=== PATIENT | female | born 1970 | race Caucasian/White ===

== ENCOUNTER → 2016-10-25 | Outpatient (CLI) | payer OTHER ==
--- NOTE | 2016-10-25 12:38 | REP ---
Clinical: Abnormal uterine bleeding . Technique: Transabdominal pelvic ultrasound followed by transvaginal examination for better evaluation of the endometrium and adnexa with color Doppler evaluation of the ovaries. Findings: Bladder is unremarkable and measures 14.3 x 8.2 x 10.5 centimeters . Heterogeneous anteverted uterus measures 5.7 x 3.3 x 3.7 cm with insignificant 5 mm myometrial cyst and 6 mm posterior intramural fibroid. The endometrial complex measures 12.4 mm thickness. Bilateral ovaries are normal in vascularity without evidence for torsion. Right ovary measures 2.5 x 1.8 x 1.4 cm ; R I = 0.67 . Left ovary measures 3.9 x 2.7 x 3.0 cm with 2.9 x 1.9 x 2.4 cm septated cyst ; R I = 0.62 . No pelvic fluid or adnexal mass lesion . Impression: 1. heterogeneous anteverted uterus with subcentimeter posterior intramural fibroid and 5 mm simple insignificant myometrial cyst. 2. Left ovary includes 2.9 cm septated complex cyst likely physiologic which may be reevaluated in 4-6 weeks to evaluate for resolution. Signed by Mohsen Juárez MD 10/25/2016 12:30 P
== END ==
LOC: M SMT 11:19
PROVIDERS: ATTEND Obstetrics & Gynecology
DX: N93.9 Abnormal uterine and vaginal bleeding, unspecified (principal); N83.202 Unspecified ovarian cyst, left side

== ENCOUNTER → 2017-01-11 | Outpatient (REF) | payer OTHER | LOC: M LAB REF 17:24 | PROVIDERS: ATTEND Obstetrics & Gynecology | DX: N93.9 Abnormal uterine and vaginal bleeding, unspecified (principal) ==

== ENCOUNTER → 2018-04-10 | Outpatient (REF) | payer OTHER ==
[2018-04-16 14:17] LABS: HPV HYBRID CAPTURE II Negative (Negative)
== END ==
LOC: M LAB REF 19:11
DX: Z12.4 Encounter for screening for malignant neoplasm of cervix (principal); R87.610 Atypical squamous cells of undetermined significance on cytologic smear of cervix (ASC-US)
CPT/HCPCS: G0123

== ENCOUNTER → 2018-11-27 | Outpatient (CLI) | payer OTHER ==
--- NOTE | 2018-11-27 18:33 | REP ---
Maxillofacial CT study without contrast: History: Recurrent sinusitis. No comparison imaging. CT findings: There are minimal mucous retention cysts in the inferior aspect of each maxillary sinus. Otherwise, the maxillary sinuses are clear bilaterally. The patient is status post uncinectomy on the right. This is widely patent. The ostiomeatal complex on the left is widely patent. Ethmoid and sphenoid aeration is normal. There is a band of mucoid material spanning the sphenoid sinus on the left. The left frontal sinus is hypoplastic. The frontal sinuses are otherwise clear. Nasal ethmoid recesses are unremarkable. Bony nasal septum deviates slightly to the left. Nasal turbinate soft tissues are unremarkable. Impression: Status post uncinectomy on the right. Small mucous retention cyst in the floor of each maxillary sinus. Some linear mucoid material in the sphenoid sinus on the left. Otherwise negative. Electronically Signed by Rogerio Kerr MD 11/27/2018 07:27 P
== END ==
LOC: M RAD 16:15
PROVIDERS: ATTEND Otolaryngology
DX: J32.0 Chronic maxillary sinusitis (principal); J34.1 Cyst and mucocele of nose and nasal sinus

== ENCOUNTER 2019-04-10 06:36 | Day surgery (SDC) | payer OTHER ==
[~2019-04-10] VITALS: Ht 165.1 cm; Wt 60.3 kg
[~2019-04-10 06:36] MED LIST: DULO1CAP6 PO; HUMI40KI SC; LEFL1TAB4 PO; LEFL20TA10 PO; LIDOCAINE 1% MDV 20ML VIAL SQ PRN; LINZ290C PO; LISI10TA4 PO; LR 1,000 ML IV ONE; NABU-126 PO; QUET5TAB PO; VIBR100C PO; XANA0.25 PO; ZIAC10TA PO; dexameTHASONE 4 MG/ML 1ML VIAL (J1100) IV ONE
[2019-04-10] MEDS ORDERED: ROCURONIUM BROMIDE 50 MG/5 ML VIAL As Ordered ONE (07:53)
[2019-04-10] MEDS ORDERED: LIDOCAINE 2% INJ 100 MG/5 ML SDV (FOR ANES.) As Ordered ONE (07:53)
[2019-04-10] MEDS ORDERED: PROPOFOL 200 MG/20 ML VIAL As Ordered ONE (07:53)
[2019-04-10] MEDS ORDERED: dexameTHASONE 4 MG/ML 1ML VIAL (J1100) As Ordered ONE (07:53)
[2019-04-10] MEDS ORDERED: ONDANSETRON 4MG/2ML VIAL (J2405) As Ordered ONE (07:54)
[2019-04-10] MEDS ORDERED: MIDAZOLAM INJ 2 MG/2 ML VIAL (J2250) As Ordered ONE (08:36)
[2019-04-10] MEDS ORDERED: fentaNYL 250 MCG/5 ML INJECTION (J3010) As Ordered ONE (08:36)
[2019-04-10] MEDS ORDERED: LIDOCAINE W/EPINEPHRINE 1% 20ML VIAL As Ordered ONE (08:52)
[2019-04-10] MEDS ORDERED: EPINEPHrine INJ 1 MG/ML 1ML VIAL As Ordered ONE (08:52)
[2019-04-10] MEDS ORDERED: LACRILUBE (AKWA TEARS) OPHTH OINT 3.5 GM As Ordered ONE (08:54)
[2019-04-10] MEDS ORDERED: METHYLENE BLUE 0.5% (5MG/ML) 10 ML AMP (PROVAYBLUE)(Q9968 PER 1MG) As Ordered ONE (09:13)
[2019-04-10] MEDS ORDERED: EPINEPHrine 1MG/ML INJ 30ML MD-VIAL As Ordered ONE (09:13)
[2019-04-10] MEDS ORDERED: ePHEDrine SULFATE 25 MG/5 ML(5MG/ML) SYRINGE As Ordered ONE (09:20)
[2019-04-10] MEDS ORDERED: ONDANSETRON 4MG/2ML VIAL (J2405) IV PRN (11:30)
[2019-04-10] MEDS ORDERED: METOCLOPRAMIDE INJ 10MG/2ML VIAL (J2765) IV PRN (11:30)
[2019-04-10] MEDS ORDERED: LR 1,000 ML IV SCH ×2 (11:30→12:31)
[2019-04-10] MEDS ORDERED: fentaNYL 100 MCG/2 ML INJECTION (J3010) IV PRN (11:30)
[2019-04-10] MEDS: oxyCODONE 5MG TAB PO PRN ×2 (11:36→12:03)
[2019-04-10 13:10] VITALS: BP 125/76
--- NOTE | 2019-04-26 08:00 | RO ---
DATE OF PROCEDURE: 04/10/2019 PREPROCEDURE DIAGNOSIS: Left frontal sinusitis, left maxillary sinusitis, left ethmoid sinusitis. POSTPROCEDURE DIAGNOSIS: Left frontal sinusitis, left maxillary sinusitis, left ethmoid sinusitis. PROCEDURE: 1. Stereotactic surgery using the Brainlab. 2. Left frontal sinusotomy using balloon. 3. Left maxillary antrostomy using balloon. 4. Left anterior ethmoidectomy. 5. Implantation of the left Propel stent. SURGEON: Viral Botello MD RECEIVER DISPATCHER: ANESTHESIA: General. CLINICAL PREAMBLE: This 48-year-old woman presented to the office complaining of left-sided facial tenderness and pressure sensation. She has had sinus surgery done to the right side of her paranasal sinuses more than a decade ago. 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 Management options including surgery listed above have been discussed. The patient understood and consented to the procedure. DESCRIPTION OF PROCEDURE: The patient was identified in preoperative holding and had the left naris marked. She was brought to the operating room in stable condition. In supine position on the operating table, the patient received general anesthesia followed by orotracheal intubation without incident. The patient was prepped and draped in the usual fashion for the procedure. The eyes were protected using the lubricant and the Tegaderm. The headband for the Brainlab system was attached to the forehead. Good surface matching was obtained between the Brainlab system and the facial surface anatomy. Both sides of the nasal cavity were then packed using pledgets of 1:1000 epinephrine. The pledgets was removed. The nasal cavity was then inspected using 0-degree nasal endoscope. The anterior surface of the left middle nasal turbinate was infiltrated with 1:100,000 epinephrine. The left uncinate process was then similarly identified and infiltrated with 1% lidocaine with 1:100,000 epinephrine. Using the balloon system from the [employer], the left frontal recess was successfully probed and identified. The illuminated guidewire was successfully introduced into the left frontal sinus cavity. The balloon was advanced into the left frontal recess and then inflated to 12 atmospheric pressure for 5 seconds. The left frontal was then irrigated. At this time, the left maxillary antrum was then identified and with the illuminated guidewire, successfully introduced into the left maxillary sinus. The balloon was then inflated to 12 atmospheric pressure again for 5 seconds. At this time, the left ethmoidalis bulla was identified and successfully resected. The anterior ethmoid air cells was then taken out as well. No additional disease was noted in the posterior ethmoid air cell system. At this time, hemostasis achieved using cottonoid pledgets soaked in 1:1000 epinephrine. The Propel stent was placed into the left osteomeatal complex area to ensure medialization of the left middle nasal turbinate. At the end of the procedure, sponge and instrument counts were correct. No complications were encountered. Estimated blood loss was less than 50 mL. General anesthesia was reversed, and the patient was extubated and brought to the recovery room in stable condition. In the recovery area, the patient exhibited full and symmetrical extraocular motion with no evidence of periorbital ecchymosis.
== END 2019-04-10 13:15 | disposition home or self-care (01) ==
LOC: M SDC 06:36
PROVIDERS: ATTEND Otolaryngology
DX: J32.0 Chronic maxillary sinusitis (principal); J32.1 Chronic frontal sinusitis; J32.2 Chronic ethmoidal sinusitis; J31.0 Chronic rhinitis; I10 Essential (primary) hypertension; F41.9 Anxiety disorder, unspecified; F32.9 Major depressive disorder, single episode, unspecified; K58.8 Other irritable bowel syndrome; R12 Heartburn; M06.9 Rheumatoid arthritis, unspecified; Z88.1 Allergy status to other antibiotic agents; Z88.2 Allergy status to sulfonamides; Z88.8 Allergy status to other drugs, medicaments and biological substances; Z79.899 Other long term (current) drug therapy
CPT/HCPCS: 31254; 31267; 81025; 88305; C2625; J1100; J2250; J2405; J3010; Q9968

== ENCOUNTER → 2019-10-08 | Outpatient (REF) | payer OTHER ==
[~2019-10-08] MED LIST changes: -LIDOCAINE 1% MDV 20ML VIAL SQ PRN; -LR 1,000 ML IV ONE; -dexameTHASONE 4 MG/ML 1ML VIAL (J1100) IV ONE
== END ==
LOC: M SFHCWAGY 17:41
PROVIDERS: ATTEND Obstetrics & Gynecology
DX: Z12.4 Encounter for screening for malignant neoplasm of cervix (principal); Z01.419 Encounter for gynecological examination (general) (routine) without abnormal findings

== ENCOUNTER 2019-12-08 21:40 | Inpatient (IN) | payer OTHER ==
[~2019-12-08 21:40] MED LIST changes: -NABU-126 PO; +NABU-51 PO
[2019-12-08] MEDS ORDERED: PANTOPRAZOLE 40MG VIAL (C9113 PER 1) As Ordered ONE (23:03)
[2019-12-08] MEDS ORDERED: PANTOPRAZOLE 40MG VIAL (C9113 PER 1) ONE (23:03)
[2019-12-08] MEDS ORDERED: GI COCKTAIL 50ML BTL(HYOSCYAMINE/MAALOX/LIDOCAINE VISCOUS)(1:3:1) ONE (23:03)
[2019-12-08] MEDS ORDERED: GI COCKTAIL 50ML BTL(HYOSCYAMINE/MAALOX/LIDOCAINE VISCOUS)(1:3:1) As Ordered ONE (23:03)
[2019-12-08] MEDS ORDERED: ISOVUE-370 76% 100ML VIAL As Ordered ONE (23:21)
[2019-12-09] MEDS ORDERED: ONDANSETRON 4 MG ORAL DISINTEGRATING TAB ONE (04:23)
[2019-12-09] MEDS ORDERED: ONDANSETRON 4 MG ORAL DISINTEGRATING TAB As Ordered ONE (04:23)
[2019-12-09] MEDS ORDERED: metroNIDAZOLE/NACL 500MG(5MG/ML) 100ML BAG (S0030) ONE ×3 (05:20→22:48)
[2019-12-09] MEDS ORDERED: metroNIDAZOLE/NACL 500MG(5MG/ML) 100ML BAG (S0030) As Ordered ONE ×3 (05:20→22:48)
[2019-12-09] MEDS ORDERED: FAMOTIDINE 20 MG TAB ONE (17:42)
[2019-12-09] MEDS ORDERED: ALPRAZolam 0.25 MG TAB ONE (17:42)
[2019-12-09] MEDS ORDERED: lisinopriL 10 MG TAB ONE (17:42)
[2019-12-09] MEDS ORDERED: bisoproloL fumarate 10 MG TAB As Ordered ONE (17:42)
[2019-12-09] MEDS ORDERED: bisoproloL fumarate 10 MG TAB ONE (17:42)
[2019-12-09] MEDS ORDERED: lisinopriL 10 MG TAB As Ordered ONE (17:42)
[2019-12-09] MEDS ORDERED: ALPRAZolam 0.25 MG TAB As Ordered ONE (17:42)
[2019-12-09] MEDS ORDERED: FAMOTIDINE 20 MG TAB As Ordered ONE (17:43)
[2019-12-09] MEDS ORDERED: ENOXAPARIN 40MG/0.4ML SYRINGE (J1650 PER 10MG) As Ordered ONE (20:31)
[2019-12-09] MEDS ORDERED: PANTOPRAZOLE 40MG TAB (PROTONIX) ONE (20:31)
[2019-12-09] MEDS ORDERED: DULoxetine 30 MG CAP (CYMBALTA) ONE (20:31)
[2019-12-09] MEDS ORDERED: ENOXAPARIN 40MG/0.4ML SYRINGE (J1650 PER 10MG) ONE (20:31)
[2019-12-09] MEDS ORDERED: QUEtiapine FUMARATE 50 MG TAB ONE (20:31)
[2019-12-09] MEDS ORDERED: DULoxetine 30 MG CAP (CYMBALTA) As Ordered ONE (20:31)
[2019-12-09] MEDS ORDERED: PANTOPRAZOLE 40MG TAB (PROTONIX) As Ordered ONE (20:31)
[2019-12-09] MEDS ORDERED: QUEtiapine FUMARATE 50 MG TAB As Ordered ONE (20:31)
[2019-12-09] MEDS ORDERED: traMADol 50 MG TAB As Ordered ONE (20:46)
[2019-12-09] MEDS ORDERED: traMADol 50 MG TAB ONE (20:46)
[2019-12-10] MEDS ORDERED: metroNIDAZOLE/NACL 500MG(5MG/ML) 100ML BAG (S0030) As Ordered ONE (05:35)
[2019-12-10] MEDS ORDERED: metroNIDAZOLE/NACL 500MG(5MG/ML) 100ML BAG (S0030) ONE (05:35)
[2019-12-10] MEDS ORDERED: PANTOPRAZOLE 40MG TAB (PROTONIX) As Ordered ONE (08:58)
[2019-12-10] MEDS ORDERED: lisinopriL 10 MG TAB As Ordered ONE (08:58)
[2019-12-10] MEDS ORDERED: FAMOTIDINE 20 MG TAB As Ordered ONE (08:59)
[2019-12-10] MEDS ORDERED: bisoproloL fumarate 10 MG TAB As Ordered ONE (08:59)
[2019-12-10] MEDS ORDERED: lisinopriL 10 MG TAB ONE (20:58)
[2019-12-10] MEDS ORDERED: PANTOPRAZOLE 40MG TAB (PROTONIX) ONE (20:58)
[2019-12-10] MEDS ORDERED: bisoproloL fumarate 10 MG TAB ONE (20:58)
[2019-12-10] MEDS ORDERED: FAMOTIDINE 20 MG TAB ONE (20:58)
--- NOTE | 2020-01-13 11:04 | ECGEPIP ---
[facility] - ED Test Date: 2019-12-08 Pat Name: LAY COELLO Department: Room: [place] [address] Gender: Female Histopathology Technician: KATHLEEN : 1970 Requested By: EMERGENCY ROOM Order Number: [id number] Reading MD: Jose A Leigh Measurements Intervals [place] Rate: 66 P: 43 AK: 166 QRS: 56 QRSD: 95 T: 58 QT: 395 QTc: 414 Interpretive Statements NORMAL SINUS RHYTHM SEE SCANNED DOWNTIME REPORT
[2020-01-23 22:12] LABS: BASO % 0.4 % (0.0-1.0); EOS # 0.5 10^3/uL (0.0-0.5); EOS % 6.8 % (0.0-3.0); HEMATOCRIT 37.4 % (36.0-47.0); LYMPH # 2.1 10^3/uL (1.5-5.0); LYMPH % 26.5 % (24.0-44.0); MEAN CORPUSCULAR HEMOGLOBIN 30.2 pg (27.0-33.0); MEAN CORPUSCULAR HGB CONC 34.8 g/dl (32.0-36.5); MONO # 0.4 10^3/uL (0.0-0.8); MONO % 4.8 % (0.0-5.0); NEUTROPHILS # 4.9 10^3/uL (1.5-8.5); PLATELET COUNT, AUTOMATED 237 10^3/uL (150-450)
[2020-01-24 07:49] LABS: BASO # 0.1 10^3/uL (0.0-0.2); BASO % 0.7 % (0.0-1.0); EOS # 0.6 10^3/uL (0.0-0.5); EOS % 8.2 % (0.0-3.0); HEMATOCRIT 33.4 % (36.0-47.0); HEMOGLOBIN 11.7 g/dl (12.0-15.5); LYMPH # 2.1 10^3/uL (1.5-5.0); LYMPH % 28.4 % (24.0-44.0); MEAN CORPUSCULAR HEMOGLOBIN 30.5 pg (27.0-33.0); MEAN CORPUSCULAR VOLUME 87.2 fl (80.0-96.0); MONO # 0.5 10^3/uL (0.0-0.8); MONO % 7.2 % (0.0-5.0); NEUTROPHILS % 55.2 % (36.0-66.0); PLATELET COUNT, AUTOMATED 229 10^3/uL (150-450); RED BLOOD COUNT 3.83 10^6/uL (4.00-5.40); WHITE BLOOD COUNT 7.2 10^3/uL (4.0-10.0)
[2020-01-24 07:54] LABS: INR 1.03; PROTHROMBIN TIME 13.7 SECONDS (12.5-14.3)
[2020-02-01 01:01] LABS: HEMATOCRIT 32.1 % (36.0-47.0); HEMOGLOBIN 10.9 g/dl (12.0-15.5); MEAN CORPUSCULAR HEMOGLOBIN 30.8 pg (27.0-33.0); MEAN CORPUSCULAR VOLUME 90.7 fl (80.0-96.0); PLATELET COUNT, AUTOMATED 206 10^3/uL (150-450); RED BLOOD COUNT 3.54 10^6/uL (4.00-5.40); WHITE BLOOD COUNT 5.7 10^3/uL (4.0-10.0)
[2020-02-21 22:28] LABS: ALBUMIN 3.7 GM/DL (3.2-5.2); ALT/SGPT 86 U/L (12-78); BILIRUBIN,TOTAL 0.9 MG/DL (0.2-1.0); BLOOD UREA NITROGEN 27 MG/DL (7-18); CALCIUM LEVEL 8.7 MG/DL (8.5-10.1); CARBON DIOXIDE LEVEL 26 MEQ/L (21-32); CHLORIDE LEVEL 101 MEQ/L (98-107); CK-MB VALUE MASS 3.7 NG/ML (<3.6); CPK CREATINE PHOSPHOKINASE 132 U/L (26-192); CREATININE FOR GFR 1.17 MG/DL (0.55-1.30); GLOMERULAR FILTRATION RATE 52.1 (>51); GLUCOSE, FASTING 127 MG/DL (70-100); LIPASE 4907 U/L (73-393); POTASSIUM SERUM 3.3 MEQ/L (3.5-5.1); SODIUM LEVEL 136 MEQ/L (136-145); TOTAL PROTEIN 6.7 GM/DL (6.4-8.2); TROPONIN I < 0.02 NG/ML (< 0.10)
[2020-03-02 03:33] LABS: ALBUMIN 3.1 GM/DL (3.2-5.2); ALT/SGPT 74 U/L (12-78); BILIRUBIN,TOTAL 0.5 MG/DL (0.2-1.0); BLOOD UREA NITROGEN 19 MG/DL (7-18); CALCIUM LEVEL 7.9 MG/DL (8.5-10.1); CARBON DIOXIDE LEVEL 30 MEQ/L (21-32); CHLORIDE LEVEL 105 MEQ/L (98-107); CHOLESTEROL LEVEL 145 MG/DL (<200); CHOLESTEROL RISK RATIO 2.543 (<5); CREATININE FOR GFR 0.92 MG/DL (0.55-1.30); GLOMERULAR FILTRATION RATE > 60.0 (>51); GLUCOSE, FASTING 96 MG/DL (70-100); HDL CHOLESTEROL 57 MG/DL (>40); HEMOGLOBIN A1c 5.6 %; HEPATITIS A ANTIBODY IGM NEGATIVE (NEGATIVE); HEPATITIS B CORE ANTIBODY IGM NEGATIVE (NEGATIVE); HEPATITIS B SURFACE ANTIGEN NEGATIVE (NEGATIVE); HEPATITIS C VIRUS ABY INDEX 0.2 INDEX (<0.8); LDL CHOLESTEROL 81 MG/DL (<100); MAGNESIUM LEVEL 2.1 MG/DL (1.8-2.4); NON-HDL-C 88 MG/DL; PHOSPHORUS LEVEL 2.7 MG/DL (2.5-4.9); POTASSIUM SERUM 3.7 MEQ/L (3.5-5.1); SODIUM LEVEL 139 MEQ/L (136-145); TOTAL PROTEIN 6.1 GM/DL (6.4-8.2); TRIGLYCERIDES LEVEL 35 MG/DL (<150)
[2020-03-02 03:33] LABS: ALBUMIN 3.1 GM/DL (3.2-5.2); ALT/SGPT 73 U/L (12-78); BILIRUBIN,TOTAL 0.6 MG/DL (0.2-1.0); BLOOD UREA NITROGEN 18 MG/DL (7-18); CARBON DIOXIDE LEVEL 29 MEQ/L (21-32); CHLORIDE LEVEL 105 MEQ/L (98-107); CHOLESTEROL LEVEL 151 MG/DL (<200); CHOLESTEROL RISK RATIO 2.559 (<5); CREATININE FOR GFR 0.92 MG/DL (0.55-1.30); GLOMERULAR FILTRATION RATE > 60.0 (>51); GLUCOSE, FASTING 94 MG/DL (70-100); HDL CHOLESTEROL 59 MG/DL (>40); HEPATITIS A ANTIBODY IGM NEGATIVE (NEGATIVE); HEPATITIS B CORE ANTIBODY IGM NEGATIVE (NEGATIVE); HEPATITIS B SURFACE ANTIGEN NEGATIVE (NEGATIVE); HEPATITIS C VIRUS ABY INDEX 0.2 INDEX (<0.8); LDL CHOLESTEROL 85 MG/DL (<100); NON-HDL-C 92 MG/DL; POTASSIUM SERUM 3.8 MEQ/L (3.5-5.1); SODIUM LEVEL 141 MEQ/L (136-145); TOTAL PROTEIN 5.8 GM/DL (6.4-8.2); TRIGLYCERIDES LEVEL 34 MG/DL (<150)
[2020-03-03 15:47] LABS: ALBUMIN 2.7 GM/DL (3.2-5.2); ALT/SGPT 47 U/L (12-78); BILIRUBIN,TOTAL 0.4 MG/DL (0.2-1.0); BLOOD UREA NITROGEN 9 MG/DL (7-18); CALCIUM LEVEL 7.8 MG/DL (8.5-10.1); CARBON DIOXIDE LEVEL 29 MEQ/L (21-32); CHLORIDE LEVEL 112 MEQ/L (98-107); GLOMERULAR FILTRATION RATE > 60.0 (>51); GLUCOSE, FASTING 100 MG/DL (70-100); SODIUM LEVEL 144 MEQ/L (136-145); TOTAL PROTEIN 5.2 GM/DL (6.4-8.2)
== END 2019-12-10 09:38 | disposition home or self-care (01) | DRG 440 ==
LOC: M ED 21:40 → M MS5PR 12-09 04:20
PROVIDERS: ADMIT Internal Medicine; ATTEND Internal Medicine
DX: K85.90 Acute pancreatitis without necrosis or infection, unspecified (principal); K86.1 Other chronic pancreatitis; K52.9 Noninfective gastroenteritis and colitis, unspecified; I10 Essential (primary) hypertension; M06.9 Rheumatoid arthritis, unspecified; K21.9 Gastro-esophageal reflux disease without esophagitis; F41.9 Anxiety disorder, unspecified; Z79.899 Other long term (current) drug therapy

== ENCOUNTER → 2020-03-17 | Outpatient (CLI) | payer OTHER ==
[~2020-03-17] MED LIST changes: +CETI10CH PO; +CETI10TA4 PO; +ESOM40CA35 PO; +GASTROGRAFIN SOLUTION 30ML (Q9963) As Ordered ONE; +METO1TAB87 PO; +MULTCAP PO; +NABU-53 PO; +PREM0.3T2 PO; +VITMTA PO
--- NOTE | 2020-03-18 05:19 | REP ---
INDICATION: HISTORY OF PANCREATITIS, RECENT EPISODE, ABD PAIN/TENDERNESS COMPARISON: None TECHNIQUE: Axial noncontrast images of the abdomen with coronal and sagittal reformations. This CT examination was performed using the following dose reduction techniques: Automated exposure control, adjustment of mA and/or kv according to the patient's size, and use of iterative reconstruction technique. FINDINGS: Lung bases demonstrate 3 mm noncalcified nodule in the periphery of the deep left sulcus (image 25) along with minimal bibasilar scarring. Visualized portions of the heart and pericardium are normal. Liver, spleen, pancreas, bilateral adrenal glands and kidneys are normal for noncontrast evaluation. No CT evidence for acute pancreatitis. Prior cholecystectomy noted. No ascites. Visualized portions of the enteric system are unremarkable including normal terminal ileum, cecum and appendix in the right lower quadrant. No obvious adenopathy. No free air. Musculoskeletal structures are intact and without acute osseous abnormality. IMPRESSION: 1. 3 mm noncalcified nodule in the deep left sulcus. Low risk patients require no significant follow-up while high risk patients warrant 1 year follow-up evaluation. 2. Otherwise normal noncontrast CT of the abdomen. No evidence for acute pancreatitis. No ascites. No adenopathy. <Electronically signed by Mohsen Juárez > 03/18/20 [id number]
== END ==
LOC: M RAD 15:43
PROVIDERS: ATTEND Physician Assistant
DX: R10.817 Generalized abdominal tenderness (principal); K85.91 Acute pancreatitis with uninfected necrosis, unspecified
CPT/HCPCS: 74150; Q9963

== ENCOUNTER 2020-03-18 14:08 | Observation (INO) | payer OTHER ==
[~2020-03-18] VITALS: Ht 165.1 cm; Wt 70.2 kg
[~2020-03-18 14:08] MED LIST changes: -CETI10CH PO; -CETI10TA4 PO; -ESOM40CA35 PO; -GASTROGRAFIN SOLUTION 30ML (Q9963) As Ordered ONE; -METO1TAB87 PO; -MULTCAP PO; -NABU-53 PO; -PREM0.3T2 PO; -VITMTA PO
[2020-03-18] MEDS ORDERED: MULTCAP PO (14:27)
[2020-03-18] MEDS ORDERED: ESOM40CA35 PO (14:27)
[2020-03-18] MEDS ORDERED: PREM0.3T2 PO (14:27)
[2020-03-18] MEDS ORDERED: CETI10CH PO (14:27)
--- NOTE | 2020-03-18 14:33 | ECGEPIP ---
[facility] - ED Test Date: 2020-03-18 Pat Name: LAY COELLO Department: Room: - Gender: Female Cardroom Manager: CECILE : 1970 Requested By: SUSAN Long Order Number: [id number] Reading MD: Kkii Tapia Measurements Intervals [place] Rate: 70 P: 50 AZ: 156 QRS: 49 QRSD: 90 T: 62 QT: 395 QTc: 429 Interpretive Statements SINUS RHYTHM SIMILAR 12/08/19 Electronically Signed on 03-18-2020 14:33:37 EST by Kiki Tapia
[2020-03-18] MEDS ORDERED: METOCLOPRAMIDE INJ 10MG/2ML VIAL (J2765 PER 1) IV ONE (15:00)
[2020-03-18 15:06] LABS: BASO # 0.1 10^3/uL (0.0-0.2); BASO % 0.9 % (0.0-1.0); EOS # 0.6 10^3/uL (0.0-0.5); EOS % 8.4 % (0.0-3.0); HEMATOCRIT 36.4 % (36.0-47.0); HEMOGLOBIN 12.1 g/dl (12.0-15.5); LYMPH # 2.1 10^3/uL (1.5-5.0); LYMPH % 30.8 % (24.0-44.0); MEAN CORPUSCULAR HEMOGLOBIN 29.9 pg (27.0-33.0); MEAN CORPUSCULAR HGB CONC 33.2 g/dl (32.0-36.5); MEAN CORPUSCULAR VOLUME 89.9 fl (80.0-96.0); MONO # 0.6 10^3/uL (0.0-0.8); MONO % 9.3 % (0.0-5.0); NEUTROPHILS # 3.4 10^3/uL (1.5-8.5); NEUTROPHILS % 50.2 % (36.0-66.0); PLATELET COUNT, AUTOMATED 276 10^3/uL (150-450); RED BLOOD COUNT 4.05 10^6/uL (4.00-5.40); WHITE BLOOD COUNT 6.7 10^3/uL (4.0-10.0)
[2020-03-18 15:17] LABS: ALBUMIN 3.7 GM/DL (3.2-5.2); ALT/SGPT 54 U/L (12-78); BILIRUBIN,DIRECT 0.2 MG/DL (0.0-0.2); BILIRUBIN,TOTAL 0.5 MG/DL (0.2-1.0); LIPASE 4314 U/L (73-393); TOTAL PROTEIN 6.7 GM/DL (6.4-8.2)
[2020-03-18 15:38] LABS: BLOOD UREA NITROGEN 15 MG/DL (7-18); CARBON DIOXIDE LEVEL 25 MEQ/L (21-32); CHLORIDE LEVEL 102 MEQ/L (98-107); CREATININE FOR GFR 0.97 MG/DL (0.55-1.30); GLOMERULAR FILTRATION RATE > 60.0 (>51); GLUCOSE, FASTING 136 MG/DL (70-100); POTASSIUM SERUM 3.9 MEQ/L (3.5-5.1); SODIUM LEVEL 135 MEQ/L (136-145)
[2020-03-18] MEDS ORDERED: CETI10TA4 PO (16:00)
[2020-03-18] MEDS ORDERED: NABU-53 PO (16:00)
[2020-03-18] MEDS ORDERED: VITMTA PO (16:00)
--- NOTE | 2020-03-18 16:43 | HPEPDOC ---
[facility] Medical History & Physical Date of Admission Mar 18, 2020 Date of Service: Mar 18, 2020 Attending Physician: Koki Larios MD History and Physical CHIEF COMPLAINT: Abdominal pain HISTORY OF PRESENT ILLNESS: Patient is a 49-year-old female with past medical history of recurrent pancreatitis, insomnia, anxiety who presents to [facility] emergency room after having sudden midepigastric, back pain. The patient states she has been having frequent attacks of abdominal pain in the same area over the past 2 months. She was hospitalized 12/08-04/18 for pancreatitis, initial diagnosis. Since her hospitalization she has been following outpatient with her primary care provider and has a referral in for pancreatitc specialist in [place]. 03/07/20 the patient experienced 10/10 pain in her epigastric area with radiation through to the back. Her primary care provider did labs including lipase which were normal at the time. On 03/17/[address] she had an outpatient [address] of the abdomen and pelvis done which did not show any signs of acute pancreatitis. Today she experienced similar pain to her November hospitalization: 10/10 pain, sharp, constant for 3035 minutes. It resolved after arrival to the emergency room. In the emergency room her blood pressure was 190 systolic, later improved to 140 systolic. WBC was within normal limits. Lipase was elevated at 4314, previous admission was 4907. The patient admits to her pain becoming more frequent. She had associated nausea with the pain along with shortness of breath. She denies chest pain fevers or chills, diet changes. She admits to eating solid with salad dressing and 3 bites of mac & cheese with pulled pork prior to her pain occurring today. She states that her pain is not always associated with eating but today it was. The patient was admitted under observation status for recurrent pancreatitis. REVIEW OF SYSTEMS: CONSTITUTIONAL: Denies lack of energy, unexplained weight gain or weight loss, loss of appetite, fever, night sweats EYES: Denies eye drainage, eye pain, visual changes, dry/irritated eye EARS, NOSE, MOUTH, THROAT: Denies difficulty hearing, ringing in ears, mouth sores, loose teeth, sore throat, facial numbness or pain NECK: Denies swollen glands CARDIOVASCULAR: Denies irregular heartbeat, racing heart, chest pains, swelling of feet or legs, pain in legs with walking RESPIRATORY: Denies shortness of breath, night sweats, wheezing, sputum production, oxygen at home, coughing up blood, cough lasting > 1 month GASTROINTESTINAL: Denies constipation, bloody stool, diarrhea, heartburn, vomiting GENITOURINARY: Denies painful urination, bloody urine, frequent urination, urgency, leaking urine, impotence MUSCULOSKELETAL: Denies joint pain, muscle pain, leg swelling INTEGUMENTARY: Denies rash, itching, new skin lesion, change in existing skin lesion, hair loss or increase, breast changes. NEUROLOGICAL: Denies headaches, dizziness, difficulty walking, numbness or tingling PSYCHIATRIC: Denies recurrent bad thoughts, mood swings, hallucinations PAST MEDICAL HISTORY: 1. Recurrent pancreatitis 2. anxiety 3. Insomnia PAST SURGICAL HISTORY: 1. Sinus surgery 2. cholecystectomy FAMILY HISTORY: Father: HTN, DM type II. alive Mother: HTN. Alive SOCIAL HISTORY: Denies smoking history. Admits to social alcohol use, not heavy drinking. Last drink was this past 03/13/20, several glasses of wine. Denies drug use, lives with locally. Employed. Full Code. ALLERGIES: Please see below. HOME MEDICATIONS: Please see below. PHYSICAL EXAMINATION: VS: Please see below CONSTITUTIONAL: No acute distress, resting comfortably, AAO x 3 EYES: PERRLA, EOM intact HENT, MOUTH: Normocephalic, atraumatic, moist mucous membranes, NECK: SUPPLE, no JVD, no lymphadenopathy, no carotid bruit CV: Regular rate and rhythm, S1S2 normal, no murmurs/rubs/gallops RESPIRATORY: Clear to auscultation bilaterally, no rales/rhonchi/wheezes GI: BS positive in 4 quadrants, soft, mild mid abdominal discomfort on exam, nondistended, no rebound or guarding, no organomegaly : Deferred MUSCULOSKELETAL: Normal ROM. No cyanosis, clubbing, swelling, joint deformity, extremity edema INTEGUMENTARY: Intact, no rashes, no lesions, no erythema NEUROLOGIC: Cranial Nerves II-XII are intact, no focal deficits PSYCHIATRIC: Mood and affect are normal LABORATORY DATA: Please see below IMAGING: CT abd/pelvis 03/17/20 (done outpatient ordered by PCP): 1. 3 mm noncalcified nodule in the deep left sulcus. Low risk patients require no significant follow-up while high risk patients warrant 1 year follow-up evalu ation. 2. Otherwise normal noncontrast CT of the abdomen. No evidence for acute pancreatitis. No ascites. No adenopathy. ASSESSMENT: 49-year-old female with past medical history of recurrent pancr eatitis, insomnia, anxiety admitted under observation status for recurrent pancreatitis. PLAN: #Recurrent pancreatitis possibly medication induced? -WBC wnl, Neg CT above, Lipase 4314 -Denies alcohol excessively -She is on several medications that can cause pancreatitis: Prempro (estrogen/progesterone supplement), quetiapine, duloxetine, lisinopril, esomeprazole, HCTZ -Will make NPO tonight except sips of water with BP meds, advance to CLD in the AM if tolerates -Pain control with toradol PRN, can add morphine if returns severe -Currently being referred to pancreatic specialist by PCP #Uncontrolled HTN likely 2/2 to abd pain -BP improved from 190 mmHg systolic, currently 140 mmHg systolic -Will start on bisoprolol and can add CCB if needed -Keep off lisinopril, HCTZ -Monitor closely #Insomnia -Holding quetiapine #Anxiety/depression -Holding quetiapine, duloxetine #GI px -PPI #DVT px -Enoxaparin DISPOSITION: Admitted under observation status. I do not anticipate this patient requiring more than a 48-72 hr stay. Plan is home at discharge. Vital Signs Vital Signs Date Time Temp Pulse Resp B/P (MAP) Pulse Ox O2 Delivery O2 Flow Rate FiO2 03/18/20 14:52 03/18/20 14:08 98.6 94 18 99 Room Air Laboratory Data Labs 24H Laboratory Tests 2 03/18/20 14:30: Immature Granulocyte % (Auto) 0.4, Neutrophils (%) (Auto) 50.2, Lymphocytes (%) (Auto) 30.8, Monocytes (%) (Auto) 9.3H, Eosinophils (%) (Auto) 8.4H, Basophils (%) (Auto) 0.9, Neutrophils # (Auto) 3.4, Lymphocytes # (Auto) 2.1, Monocytes # (Auto) 0.6, Eosinophils # (Auto) 0.6H, Basophils # (Auto) 0.1, Nucleated Red Blood Cells % (auto) 0.0, Anion Gap 8, Glomerular Filtration Rate > 60.0, Calci um Level 9.0, Total Bilirubin 0.5, Direct Bilirubin 0.2, Aspartate Amino Transf (AST/SGOT) 68H, Alanine Aminotransferase (ALT/SGPT) 54, Alkaline Phosphatase 85, Total Protein 6.7, Albumin 3.7, Albumin/Globulin Ratio 1.2, Lipase 4314H 03/18/20 15:21: POC Glucose (Misc Panel) 109H, POC Sodium (Misc Panel) 136, POC Potassium (Misc Panel) 3.7, POC Chloride (Misc Panel) 98, POC Total CO2 (Misc Panel) 26.0, POC Blood Urea Nitrogen (Misc Panel 15, POC Ionized Calcium (Misc Panel) 4.8, POC Creatinine (Misc Panel) 0.9, POC Hematocrit (Misc Panel) 35.0L 03/18/20 15:58: CBC/BMP Laboratory Tests 03/18/20 14:30 Home Medications Scheduled Bisoprolol/Hydrochlorothiazide (Ziac 10-6.25 mg Tablet) 1 Each Tablet, 1 TAB PO DAILY Cetirizine HCl (Cetirizine HCl) 10 Mg Tablet, 10 MG PO QHS Duloxetine Hcl (Duloxetine HCl) 60 Mg Capsule.dr, 60 MG PO QHS Esomeprazole Magnesium (Esomeprazole Magnesium Dr) 40 Mg Capsule.dr, 40 MG PO QHS Estrogen,Con/M-Progest Acet (Prempro 0.3 mg-1.5 mg Tablet) 1 Each Tablet, 1 TAB PO QHS Linaclotide (Linzess) 290 Mcg Capsule, 290 MCG PO DAILY Lisinopril (Lisinopril) 10 Mg Tablet, 10 MG PO DAILY Multivitamins (Thera M Plus Tablet) 1 Each Tablet, 1 TAB PO DAILY Quetiapine Fumarate (Quetiapine Fumarate) 50 Mg Tablet, 50 MG PO QHS Scheduled PRN Nabumetone (Nabumetone) 750 Mg Tablet, 750 MG PO DAILY PRN for KNEE PAIN Allergies Coded Allergies: Sulfa (Sulfonamide Antibiotics) (Verified Allergy, Severe, ANAPHYLAXIS, 03/18/20) Cephalosporins (Verified Allergy, Intermediate, HIVES/RASH, 03/18/20) A-FIB/CHADSVASC A-FIB History Current/History of A-Fib/PAF?: No Current PO Anticoag Therapy: No Age/Risk Factor Scoring CHADSVASC: CHADSVASC Response (Comments) Value Age Risk Factor Age < 65 years old 0 Gender Risk Factor Female 1 Hx of CHF No 0 Hx of HTN Yes 1 Hx of Stroke/TIA/or VTE No 0 Hx of Diabetes No 0 Hx of Vascular Disease No 0 Total 2 Treatment Treatment ordered: Other Other anticoagulant ordered: Koki Travis MD Mar 18, 2020 16:43
[2020-03-18] MEDS: NS 1,000 ML IV SCH (16:45)
[2020-03-18 17:44] VITALS: BP 149/74
[2020-03-18] MEDS: KETOROLAC 30 MG/ML 1ML VIAL IV SCH (19:42)
[2020-03-18 20:00] VITALS: BP 144/78
[2020-03-19] MEDS: NS 1,000 ML IV SCH ×2 (00:38→08:15)
[2020-03-19] MEDS: KETOROLAC 30 MG/ML 1ML VIAL IV SCH ×2 (02:49→10:00)
[2020-03-19 06:45] VITALS: BP 124/68
[2020-03-19 07:01] LABS: HEMATOCRIT 36.4 % (36.0-47.0); HEMOGLOBIN 12.1 g/dl (12.0-15.5); MEAN CORPUSCULAR HEMOGLOBIN 30.6 pg (27.0-33.0); MEAN CORPUSCULAR HGB CONC 33.2 g/dl (32.0-36.5); MEAN CORPUSCULAR VOLUME 92.2 fl (80.0-96.0); PLATELET COUNT, AUTOMATED 224 10^3/uL (150-450); RED BLOOD COUNT 3.95 10^6/uL (4.00-5.40); WHITE BLOOD COUNT 5.4 10^3/uL (4.0-10.0)
[2020-03-19 07:25] LABS: ALBUMIN 2.8 GM/DL (3.2-5.2); ALT/SGPT 42 U/L (12-78); BILIRUBIN,TOTAL 0.4 MG/DL (0.2-1.0); BLOOD UREA NITROGEN 13 MG/DL (7-18); CALCIUM LEVEL 7.5 MG/DL (8.5-10.1); CARBON DIOXIDE LEVEL 25 MEQ/L (21-32); CHLORIDE LEVEL 110 MEQ/L (98-107); GLOMERULAR FILTRATION RATE > 60.0 (>51); GLUCOSE, FASTING 88 MG/DL (70-100); LIPASE 257 U/L (73-393); POTASSIUM SERUM 3.8 MEQ/L (3.5-5.1); SODIUM LEVEL 140 MEQ/L (136-145); TOTAL PROTEIN 5.7 GM/DL (6.4-8.2)
[2020-03-19] MEDS ORDERED: METO1TAB87 PO (07:48)
[2020-03-19] MEDS ORDERED: ENOXAPARIN 40MG/0.4ML SYRINGE (J1650 PER 10MG) SC SCH (09:00)
[2020-03-19] MEDS ORDERED: METOPROLOL TART 12.5 MG PER 1/2 TAB PO SCH (09:00)
[2020-03-19] MEDS ORDERED: bisoproloL fumarate 10 MG TAB PO SCH (09:00)
[2020-03-19 11:19] VITALS: BP 124/68
--- NOTE | 2020-03-19 15:57 | DS.PDOC ---
Discharge Summary General Date of Admission Mar 18, 2020 at 14:09 Date of Discharge 03/19/20 Attending Physician: Koki Larios MD Discharge Summary HISTORY OF PRESENT ILLNESS: Patient is a 49-year-old female with past medical history of recurrent pancreatitis, insomnia, anxiety who presents to [facility] emergency room after having sudden midepigastric, back pain. The patient states she has been having frequent attacks of abdominal pain in the same area over the past 2 months. She was hospitalized 12/08-04/18 for pancreatitis, initial diagnosis. Since her hospitalization she has been following outpatient with her primary care provider and has a referral in for pancreatitc specialist in [place]. 03/07/20 the patient experienced 10/10 pain in her epigastric area with radiation through to the back. Her primary care provider did labs including lipase which were normal at the time. On 03/17/[address] she had an outpatient [address] of the abdomen and pelvis done which did not show any signs of acute pancreatitis. Today she experienced similar pain to her November hospitalization: 10/10 pain, sharp, constant for 3035 minutes. It resolved after arrival to the emergency room. In the emergency room her blood pressure was 190 systolic, later improved to 140 systolic. WBC was within normal limits. Lipase was elevated at 4314, previous admission was 4907. The patient admits to her pain becoming more frequent. She had associated nausea with the pain along with shortness of breath. She denies chest pain fevers or chills, diet changes. She admits to eating solid with salad dressing a nd 3 bites of mac & cheese with pulled pork prior to her pain occurring today. She states that her pain is not always associated with eating but today it was. The patient was admitted under observation status for recurrent pancreatitis. HOSPITAL COURSE: Patient was admitted under NPO status. The next AM lipase as rechecked and found to have decreased to normal at 257. She was advanced in her diet without any pain or complaints. She was notified that several medications she takes can cause pancreatitis. Bisoprolol/HCTZ and lisinopril were stopped on med list and she was started on metoprolol l12.5 mg BP BID, she tolerated first dose well. It is recommended that she sit down with her PCP and discuss all the meds that can cause pancreatitis and which can either be switched or d/javid completely. At the time of discharge, she denied abdominal pain, fevers, chills, n/v/d, shortness of breath. REVIEW OF SYSTEMS: CONSTITUTIONAL: Denies lack of energy, unexplained weight gain or weight loss, loss of appetite, fever, night sweats EYES: Denies eye drainage, eye pain, visual changes, dry/irritated eye EARS, NOSE, MOUTH, THROAT: Denies difficulty hearing, ringing in ears, mouth sores, loose teeth, sore throat, facial numbness or pain NECK: Denies swollen glands CARDIOVASCULAR: Denies irregular heartbeat, racing heart, chest pains, swelling of feet or legs, pain in legs with walking RESPIRATORY: Denies shortness of breath, night sweats, wheezing, sputum production, oxygen at home, coughing up blood, cough lasting > 1 month GASTROINTESTINAL: Denies constipation, bloody stool, diarrhea, heartburn, vomiting GENITOURINARY: Denies painful urination, bloody urine, frequent urination, urgency, leaking urine, impotence MUSCULOSKELETAL: Denies joint pain, muscle pain, leg swelling INTEGUMENTARY: Denies rash, itching, new skin lesion, change in existing skin lesion, hair loss or increase, breast changes. NEUROLOGICAL: Denies headaches, dizziness, difficulty walking, numbness or ti ngling PSYCHIATRIC: Denies recurrent bad thoughts, mood swings, hallucinations PAST MEDICAL HISTORY: 1. Recurrent pancreatitis 2. anxiety 3. Insomnia PAST SURGICAL HISTORY: 1. Sinus surgery 2. cholecystectomy FAMILY HISTORY: Father: HTN, DM type II. alive Mother: HTN. Alive SOCIAL HISTORY: Denies smoking history. Admits to social alcohol use, not heavy drinking. Last drink was this past 03/13/20, several glasses of wine. Denies drug use, lives with locally. Employed. Full Code. ALLERGIES: Please see below. HOME MEDICATIONS: Please see below. PHYSICAL EXAMINATION: VS: Please see below CONSTITUTIONAL: No acute distress, resting comfortably, AAO x 3 EYES: PERRLA, EOM intact HENT, MOUTH: Normocephalic, atraumatic, moist mucous membranes, NECK: SUPPLE, no JVD, no lymphadenopathy, no carotid bruit CV: Regular rate and rhythm, S1S2 normal, no murmurs/rubs/gallops RESPIRATORY: Clear to auscultation bilaterally, no rales/rhonchi/wheezes GI: BS positive in 4 quadrants, soft, nondistended, no rebound or guarding, no organomegaly : Deferred MUSCULOSKELETAL: Normal ROM. No cyanosis, clubbing, swelling, joint deformity, extremity edema INTEGUMENTARY: Intact, no rashes, no lesions, no erythema NEUROLOGIC: Cranial Nerves II-XII are intact, no focal deficits PSYCHIATRIC: Mood and affect are normal LABORATORY DATA: Please see below IMAGING: CT abd/pelvis 03/17/20 (done outpatient ordered by PCP): 1. 3 mm noncalcified nodule in the deep left sulcus. Low risk patients require no significant follow-up while high risk patients warrant 1 year follow-up evaluation. 2. Otherwise normal noncontrast CT of the abdomen. No evidence for acute pancreatitis. No ascites. No adenopathy. ASSESSMENT: 49-year-old female with past medical history of recurrent pancreatitis, insomnia, anxiety admitted under observation status for recurrent pancreatitis. PLAN: #Recurrent pancreatitis possibly medication induced? -WBC wnl, Neg CT above, Lipase 4314--> 257 -Denies drinking alcohol excessively -She is on several medications that can cause pancreatitis: Prempro (estrogen/progesterone supplement), quetiapine, duloxetine, lisinopril, esomeprazole, HCTZ -Stopped lisinopril and Bisoprolol/HCTZ -Recommended for her to discuss other options for meds than those that can possibly cause pancreatitis. -Education given to her by nutrition on diet to follow #Uncontrolled HTN likely 2/2 to abd pain- resolved. -Stopped ACEi, BB/HCTZ combo -Started on metoprolol BID -PCP to monitor #Insomnia -C/w home med #Anxiety/depression -C/w quetiapine, duloxetine #GERD -PPI DISPOSITION: Discharged home in improved condition. Advised to f/u with PCP within 1-2 weeks after discharge. TIME SPENT ON DISCHARGE: Greater than 30 minutes. Vital Signs/I&Os Vital Signs Date Time Temp Pulse Resp B/P (MAP) Pulse Ox O2 Delivery O2 Flow Rate FiO2 03/19/20 11:19 69 124/68 03/19/20 06:45 98.3 20 96 Room Air I&O- Last 24 Hours up to 6 AM 03/19/20 06:00 Intake Total 785 ml Output Total 0 ml Balance 785 ml Laboratory Data Labs 24H Laboratory Tests 2 03/18/20 15:58: Coronavirus (COVID-19)(PCR) NEGATIVE 03/19/20 06:18: Nucleated Red Blood Cells % (auto) 0.0, Anion Gap 5L, Glomerular Filtration Rate > 60.0, Calcium Level 7.5#L, Total Bilirubin 0.4, Aspartate Amino Transf (AST/SGOT) 23, Alanine Aminotransferase (ALT/SGPT) 42, Alkaline Phosphatase 72, Total Protein 5.7L, Albumin 2.8#L, Albumin/Globulin Ratio 1.0L, Lipase 257 CBC/BMP Laboratory Tests 03/19/20 06:18 Discharge Medications Scheduled Cetirizine HCl (Cetirizine HCl) 10 Mg Tablet, 10 MG PO QHS, (Reported) Duloxetine Hcl (Duloxetine HCl) 60 Mg Capsule.dr, 60 MG PO QHS, (Reported) Esomeprazole Magnesium (Esomeprazole Magnesium Dr) 40 Mg Capsule.dr, 40 MG PO QHS, (Reported) Estrogen,Con/M-Progest Acet (Prempro 0.3 mg-1.5 mg Tablet) 1 Each Tablet, 1 TAB PO QHS, (Reported) Linaclotide (Linzess) 290 Mcg Capsule, 290 MCG PO DAILY, (Reported) Metoprolol Tartrate (Metoprolol Tartrate) 25 Mg Tablet, 12.5 MG PO BID Multivitamins (Thera M Plus Tablet) 1 Each Tablet, 1 TAB PO DAILY, (Reported) Quetiapine Fumarate (Quetiapine Fumarate) 50 Mg Tablet, 50 MG PO QHS, (Reported) Scheduled PRN Nabumetone (Nabumetone) 750 Mg Tablet, 750 MG PO DAILY PRN for KNEE PAIN, (Reported) Allergies Coded Allergies: Sulfa (Sulfonamide Antibiotics) (Verified Allergy, Severe, ANAPHYLAXIS, 03/18/20) Cephalosporins (Verified Allergy, Intermediate, HIVES/RASH, 03/18/20) Current Medications Current Medications Medications (Trade) Dose Ordered Sig/Shala Route PRN Reason Start Time Stop Time Status Last Admin Dose Admin Bisoprolol Fumarate (Zebeta) 10 mg DAILY PO 03/19/20 09:00 03/19/20 07:49 DC Enoxaparin Sodium (Lovenox) 40 mg DAILY SC 03/19/20 09:00 03/19/20 12:05 DC Home Med (Med Rec Complete!) ASDIRECTED XX 03/18/20 16:15 03/18/20 16:04 DC Ketorolac Tromethamine (ToRADol) 15 mg Q8H IV 03/18/20 18:00 03/19/20 12:05 DC 03/19/20 02:49 Metoprolol Tartrate (Lopressor) 12.5 mg BID PO 03/19/20 09:00 03/19/20 12:05 DC 03/19/20 11:19 Sodium Chloride 1,000 ml @ 125 mls/hr Q8H IV 03/18/20 16:15 03/19/20 12:05 DC 03/19/20 00:38 Koki Larios MD Mar 19, 2020 15:57
== END 2020-03-19 12:00 | disposition home or self-care (01) ==
LOC: M ED 14:08 → M ED INP 14:09 → ENRESERV 17:03 → M MS5PR 17:37
PROVIDERS: ADMIT Internal Medicine; ATTEND Internal Medicine
DX: K85.90 Acute pancreatitis without necrosis or infection, unspecified (principal); I10 Essential (primary) hypertension; K21.9 Gastro-esophageal reflux disease without esophagitis; F41.9 Anxiety disorder, unspecified; G47.00 Insomnia, unspecified; Z79.899 Other long term (current) drug therapy; Z88.2 Allergy status to sulfonamides; Z88.1 Allergy status to other antibiotic agents
CPT/HCPCS: 36415; 80047; 80048; 80053; 80076; 83690; 85025; 85027; 93005; 96374; 99285; J1885; J2765; U0002

== ENCOUNTER → 2020-05-13 | Outpatient (CLI) | payer OTHER ==
[~2020-05-13] MED LIST changes: +CETI10CH PO; +CETI10TA4 PO; +ESOM40CA35 PO; +METO1TAB87 PO; +MULTCAP PO; +NABU-53 PO; +PREM0.3T2 PO; +VITMTA PO
--- NOTE | 2020-05-13 17:04 | REP ---
INDICATION: 611.89-N63.0 NODULE OF SKIN OF LT BREAST. COMPARISON: 04/17/2018 as well as other prior exams. TECHNIQUE: MLO and CC views bilateral breasts performed with tomosynthesis. FINDINGS: Moderate heterogeneous fibroglandular tissue is again noted bilaterally. Nodular densities in the right breast inferomedially are unchanged. A previously noted nodule in the upper outer quadrant of the left breast represented a cyst has essentially resolved. There is no new mass or clustered microcalcifications bilaterally. No architectural distortion is seen. The Volpara volumetric breast density pattern is B. IMPRESSION: BIRADS/ACR category 0, incomplete. No mass or clustered microcalcifications bilaterally. No new suspicious finding bilaterally when compared to the prior study. On a recent MRI 05/03/2020 a possible 5 mm nodule was seen the medial left breast 2 cm from the nipple. I do not see a mammographic abnormality at this location. I would recommend ultrasound of that area for further evaluation. This patient's Tyrer-Cuzick lifetime breast cancer risk assessment score is 11.9%. This mammogram was interpreted with the aid of an FDA-approved computer-aided detection system. The patient states she had a clinical breast exam in over 1 year ago. The patient letter being requested is M0. RECOMMENDATION: Recommend ultrasound left breast at 9 o'clock 2 cm from the nipple to rule out a nodule at that location as suggested by the recent MRI.. <Electronically signed by Ru Stanton > 05/13/20 [id number]
== END ==
LOC: M WHC 13:48
PROVIDERS: ATTEND Nurse Practitioner
DX: N63.10 Unspecified lump in the right breast, unspecified quadrant (principal)
CPT/HCPCS: 77066; G0279

== ENCOUNTER → 2020-05-19 | Outpatient (CLI) | payer OTHER ==
[~2020-05-19] MED LIST changes: +LISI10TA22 PO; -LISI10TA4 PO; +QUET50TA3 PO; -QUET5TAB PO
--- NOTE | 2020-05-19 16:46 | REP ---
INDICATION: ADDITIONAL VIEWS LT BREAST. COMPARISON: Mammogram 05/13/2020 and MRI 05/03/2020. TECHNIQUE: Real-time sonographic evaluation of left breast performed. FINDINGS: Real-time sonographic evaluation of left breast performed in the region of 9 o'clock near the nipple, recent MRI showed a possible 5 mm nodule at this location. Four subcentimeter cystic structures are seen between 8 and 10 o'clock near the nipple. These range in diameter 3-7 mm. No suspicious nodule is seen. IMPRESSION: BIRADS/ACR category 2, benign. In the left breast between 8:10 o'clock near the nipple there are 4 subcentimeter cystic structures which appear benign. No suspicious nodule seen. Recommend follow-up mammogram in 1 year. RECOMMENDATION: Recommend follow-up screening mammogram in 1 year. <Electronically signed by Ru Stanton > 05/19/20 [id number]
== END ==
LOC: M WHC 12:58
PROVIDERS: ATTEND Nurse Practitioner
DX: N60.02 Solitary cyst of left breast (principal)

== ENCOUNTER → 2020-05-25 | Outpatient (CLI) | payer OTHER ==
[~2020-05-25] MED LIST changes: +GLUCAGON INJ 1MG VIAL As Ordered ONE; +ISOVUE-370 76% 100ML VIAL As Ordered ONE; +VoLumen 0.1% SUSPENSION 450ML BOTTLE As Ordered ONE
--- NOTE | 2020-05-25 11:27 | REP ---
INDICATION: GENERALIZED ABD PAIN COMPARISON: 03/17/2020 TECHNIQUE: Axial contrast-enhanced images from the lung bases to the pubic symphysis with images obtained in arterial and portal venous phases of enhancement. Low-dose oral contrast material was administered prior to imaging. Coronal and sagittal reformations were obtained. FINDINGS: The enteric system including gastroesophageal junction, stomach, small and large bowel is essentially unremarkable. Normal terminal ileum, cecum and appendix are identified in the right lower quadrant. Few scattered sigmoid diverticula noted without acute diverticulitis. No evidence for bowel obstruction or acute inflammatory process. No obvious CT evidence for inflammatory bowel disease. No enteric stricture, obvious fistula noted. Liver, spleen, pancreas, bilateral adrenal glands and right kidney are normal. 2-3 subcentimeter left renal cysts noted. Patient is status post cholecystectomy. Incidental small fat containing periumbilical hernia noted. Pelvis demonstrates normal bladder and age-appropriate uterus/adnexa. No ascites. No adenopathy. No free air. Abdominal aorta and vasculature without aneurysm or dissection. Musculoskeletal structures are intact. Lung bases are clear. IMPRESSION: 1. No obvious acute or chronic enteric process appreciated. 2. Few scattered sigmoid diverticula without acute diverticulitis. 3. No ascites, focal inflammatory stranding, or adenopathy. 4. Small fat containing periumbilical hernia and few sub cm benign appearing left renal cysts. <Electronically signed by Mohsen Juárez > 05/25/20 [id number]
== END ==
LOC: M RAD 08:56
PROVIDERS: ATTEND Specialist
DX: K44.9 Diaphragmatic hernia without obstruction or gangrene (principal); N28.1 Cyst of kidney, acquired; R10.84 Generalized abdominal pain; K21.9 Gastro-esophageal reflux disease without esophagitis; R85.0 Abnormal level of enzymes in specimens from digestive organs and abdominal cavity; Z79.1 Long term (current) use of non-steroidal anti-inflammatories (NSAID)
CPT/HCPCS: 74177; J1610; Q9967

== ENCOUNTER → 2021-01-26 | Outpatient (REF) | payer OTHER ==
[~2021-01-26] MED LIST changes: -GLUCAGON INJ 1MG VIAL As Ordered ONE; -ISOVUE-370 76% 100ML VIAL As Ordered ONE; +LEFL10TA12 PO; -LEFL20TA10 PO; -NABU-51 PO; -NABU-53 PO; +NABU-71 PO; +NABU-73 PO; -QUET50TA3 PO; +QUET50TA4 PO; -VoLumen 0.1% SUSPENSION 450ML BOTTLE As Ordered ONE
== END ==
LOC: M SFHCWAGY 14:06
PROVIDERS: ATTEND Obstetrics & Gynecology
DX: Z12.4 Encounter for screening for malignant neoplasm of cervix (principal)
CPT/HCPCS: 87624; G0123

== ENCOUNTER → 2021-12-14 | Outpatient (CLI) | payer OTHER ==
[~2021-12-14] MED LIST changes: +DOXY-443; +UPAD15TA
== END ==
LOC: M WHC 14:08
PROVIDERS: ATTEND Obstetrics & Gynecology
DX: N95.0 Postmenopausal bleeding (principal)

== ENCOUNTER → 2022-02-15 | Outpatient (CLI) | payer OTHER | LOC: M WHC 09:47 | PROVIDERS: ATTEND Obstetrics & Gynecology | DX: Z12.31 Encounter for screening mammogram for malignant neoplasm of breast (principal); N63.13 Unspecified lump in the right breast, lower outer quadrant; R92.8 Other abnormal and inconclusive findings on diagnostic imaging of breast ==

== ENCOUNTER → 2022-02-15 | Outpatient (REF) | payer OTHER | LOC: M SFHCWAGY 15:19 | PROVIDERS: ATTEND Obstetrics & Gynecology | DX: Z12.4 Encounter for screening for malignant neoplasm of cervix (principal) | CPT/HCPCS: 87624; G0123 ==

== ENCOUNTER 2022-02-23 14:09 | Inpatient (IN) | payer OTHER ==
[~2022-02-23] VITALS: Ht 165.1 cm; Wt 70.4 kg
[2022-02-23 15:05] LABS: BASO # 0.1 10^3/uL (0.0-0.2); BASO % 0.5 % (0.0-1.0); EOS # 0.1 10^3/uL (0.0-0.5); EOS % 0.9 % (0.0-3.0); HEMATOCRIT 34.4 % (36.0-47.0); HEMOGLOBIN 11.6 g/dl (12.0-15.5); LYMPH % 8.2 % (24.0-44.0); MEAN CORPUSCULAR HEMOGLOBIN 31.4 pg (27.0-33.0); MEAN CORPUSCULAR HGB CONC 33.7 g/dl (32.0-36.5); MEAN CORPUSCULAR VOLUME 93.2 fl (80.0-96.0); MONO # 1.1 10^3/uL (0.0-0.8); MONO % 8.6 % (2.0-8.0); NEUTROPHILS % 81.5 % (36.0-66.0); PLATELET COUNT, AUTOMATED 246 10^3/uL (150-450); RED BLOOD COUNT 3.69 10^6/uL (4.00-5.40); WHITE BLOOD COUNT 12.3 10^3/uL (4.0-10.0)
[2022-02-23 15:27] LABS: ALBUMIN 3.5 GM/DL (3.2-5.2); ALT/SGPT 25 U/L (12-78); BILIRUBIN,DIRECT 0.2 MG/DL (0.0-0.2); BILIRUBIN,TOTAL 0.7 MG/DL (0.2-1.0); BLOOD UREA NITROGEN 14 MG/DL (7-18); C REACTIVE PROTEIN QUANTITATIV 7.97 MG/DL (0.00-0.30); CALCIUM LEVEL 8.9 MG/DL (8.5-10.1); CARBON DIOXIDE LEVEL 23 MEQ/L (21-32); CHLORIDE LEVEL 107 MEQ/L (98-107); CREATININE FOR GFR 0.97 MG/DL (0.55-1.30); GLOMERULAR FILTRATION RATE > 60.0 (>51); GLUCOSE, FASTING 112 MG/DL (70-100); POTASSIUM SERUM 3.8 MEQ/L (3.5-5.1); SODIUM LEVEL 138 MEQ/L (136-145); TOTAL PROTEIN 6.5 GM/DL (6.4-8.2)
[2022-02-23 15:38] LABS: ERYTHROCYTE SEDIMENTATION RATE 24 mm/hr (0-30)
[2022-02-23] MEDS ORDERED: AMPICILLIN SOD/SULBACTAM SOD 3 GM in D5W MINI-BAG PLUS 100 ML IV ONE (17:20)
[2022-02-23] MEDS ORDERED: XIID5DRO OU (18:29)
[2022-02-23] MEDS ORDERED: LISI10TA22 PO (18:29)
[2022-02-23] MEDS ORDERED: BISO1TAB19 PO (18:29)
[2022-02-23] MEDS ORDERED: ACTE162I SQ (18:29)
[2022-02-23] MEDS ORDERED: HOME MED LIST COMPLETE! XX SCH (18:30)
[2022-02-23 18:34] LABS: RSV AMPLIFICATION NEGATIVE (NEGATIVE)
[2022-02-23] MEDS ORDERED: AZITHROMYCIN 250MG TABLET PO ONE (20:00)
[2022-02-23 20:37] VITALS: BP 141/83
[2022-02-23] MEDS ORDERED: PERCOCET 5MG/325MG TAB PO PRN (21:50)
[2022-02-23] MEDS: DULoxetine 30MG CAPSULE (CYMBALTA) PO SCH (22:15)
[2022-02-23] MEDS: CETIRIZINE (ZyrTEC) 10 MG TAB PO SCH (22:15)
[2022-02-23] MEDS: QUEtiapine FUMARATE 50MG TAB PO SCH (22:15)
[2022-02-23] MEDS: PERCOCET 5MG/325MG TAB PO PRN (22:16)
[2022-02-24] MEDS: AMPICILLIN SOD/SULBACTAM SOD 3 GM in D5W MINI-BAG PLUS 100 ML IV SCH ×5 (00:23→23:14)
[2022-02-24 01:39] VITALS: BP 101/67
[2022-02-24] MEDS: PERCOCET 5MG/325MG TAB PO PRN ×3 (05:35→18:57)
[2022-02-24 05:49] VITALS: BP 101/67
[2022-02-24 06:15] LABS: BASO % 0.3 % (0.0-1.0); EOS # 0.2 10^3/uL (0.0-0.5); EOS % 2.4 % (0.0-3.0); HEMATOCRIT 30.6 % (36.0-47.0); HEMOGLOBIN 10.2 g/dl (12.0-15.5); LYMPH % 10.2 % (24.0-44.0); MEAN CORPUSCULAR HEMOGLOBIN 30.6 pg (27.0-33.0); MEAN CORPUSCULAR HGB CONC 33.3 g/dl (32.0-36.5); MEAN CORPUSCULAR VOLUME 91.9 fl (80.0-96.0); MONO # 0.8 10^3/uL (0.0-0.8); MONO % 8.4 % (2.0-8.0); NEUTROPHILS # 7.4 10^3/uL (1.5-8.5); NEUTROPHILS % 78.3 % (36.0-66.0); PLATELET COUNT, AUTOMATED 228 10^3/uL (150-450); RED BLOOD COUNT 3.33 10^6/uL (4.00-5.40); WHITE BLOOD COUNT 9.5 10^3/uL (4.0-10.0)
[2022-02-24 06:40] LABS: BLOOD UREA NITROGEN 11 MG/DL (7-18); CALCIUM LEVEL 8.5 MG/DL (8.5-10.1); CARBON DIOXIDE LEVEL 24 MEQ/L (21-32); CHLORIDE LEVEL 106 MEQ/L (98-107); CREATININE FOR GFR 0.74 MG/DL (0.55-1.30); GLOMERULAR FILTRATION RATE > 60.0 (>51); GLUCOSE, FASTING 115 MG/DL (70-100); POTASSIUM SERUM 3.9 MEQ/L (3.5-5.1); SODIUM LEVEL 136 MEQ/L (136-145)
[2022-02-24] MEDS: AZITHROMYCIN 250MG TABLET PO SCH (08:33)
[2022-02-24] MEDS: OMEPRAZOLE 20MG CAP PO SCH (08:33)
[2022-02-24] MEDS: MULTIVITAMINS/MINERALS THERAP 1 TAB PO SCH (08:33)
[2022-02-24] MEDS: ENOXAPARIN 40MG/0.4ML SYRINGE (J1650 PER 10MG) SC SCH (08:33)
[2022-02-24] MEDS: HYDROCHLOROthiazide 6.25MG PER 1/4TAB PO SCH (08:34)
[2022-02-24] MEDS: bisoproloL fumarate 10 MG TAB PO SCH (08:34)
[2022-02-24] MEDS ORDERED: diphenhydrAMINE 25MG CAP PO ONE (09:00)
[2022-02-24 10:00] VITALS: BP 121/73
[2022-02-24 14:00] VITALS: BP 117/71
[2022-02-24 18:00] VITALS: BP 156/89
[2022-02-24 20:00] VITALS: BP 145/86
[2022-02-24] MEDS: CETIRIZINE (ZyrTEC) 10 MG TAB PO SCH (20:38)
[2022-02-24] MEDS: DULoxetine 30MG CAPSULE (CYMBALTA) PO SCH (20:38)
[2022-02-24] MEDS: QUEtiapine FUMARATE 50MG TAB PO SCH (20:39)
[2022-02-24] MEDS: metroNIDAZOLE (FLAGYL) 500MG TABLET PO SCH (21:00)
[2022-02-24] MEDS: ACETAMINOPHEN TAB 650MG DOSE (2X325MG) PO PRN (23:16)
[2022-02-25] VITALS: BP 159/77
[2022-02-25] MEDS: PERCOCET 5MG/325MG TAB PO PRN ×2 (01:13→09:06)
[2022-02-25 04:00] VITALS: BP 130/82
[2022-02-25] MEDS: metroNIDAZOLE (FLAGYL) 500MG TABLET PO SCH (05:07)
[2022-02-25] MEDS: AMPICILLIN SOD/SULBACTAM SOD 3 GM in D5W MINI-BAG PLUS 100 ML IV SCH ×2 (05:07→12:03)
[2022-02-25] MEDS: ACETAMINOPHEN TAB 650MG DOSE (2X325MG) PO PRN (05:11)
[2022-02-25 06:52] LABS: BASO # 0.1 10^3/uL (0.0-0.2); EOS # 0.3 10^3/uL (0.0-0.5); EOS % 6.3 % (0.0-3.0); HEMATOCRIT 27.1 % (36.0-47.0); HEMOGLOBIN 9.4 g/dl (12.0-15.5); LYMPH # 1.1 10^3/uL (1.5-5.0); LYMPH % 21.1 % (24.0-44.0); MEAN CORPUSCULAR HEMOGLOBIN 31.2 pg (27.0-33.0); MEAN CORPUSCULAR HGB CONC 34.7 g/dl (32.0-36.5); MONO # 0.5 10^3/uL (0.0-0.8); MONO % 9.5 % (2.0-8.0); NEUTROPHILS # 3.1 10^3/uL (1.5-8.5); NEUTROPHILS % 61.7 % (36.0-66.0); PLATELET COUNT, AUTOMATED 201 10^3/uL (150-450); RED BLOOD COUNT 3.01 10^6/uL (4.00-5.40); WHITE BLOOD COUNT 5.1 10^3/uL (4.0-10.0)
[2022-02-25 07:29] LABS: BLOOD UREA NITROGEN 10 MG/DL (7-18); CALCIUM LEVEL 8.1 MG/DL (8.5-10.1); CARBON DIOXIDE LEVEL 26 MEQ/L (21-32); CHLORIDE LEVEL 102 MEQ/L (98-107); CREATININE FOR GFR 0.86 MG/DL (0.55-1.30); GLOMERULAR FILTRATION RATE > 60.0 (>51); GLUCOSE, FASTING 102 MG/DL (70-100); POTASSIUM SERUM 3.5 MEQ/L (3.5-5.1); SODIUM LEVEL 134 MEQ/L (136-145)
[2022-02-25] MEDS: MULTIVITAMINS/MINERALS THERAP 1 TAB PO SCH (09:39)
[2022-02-25] MEDS: OMEPRAZOLE 20MG CAP PO SCH (09:39)
[2022-02-25] MEDS: AZITHROMYCIN 250MG TABLET PO SCH (09:39)
[2022-02-25] MEDS: bisoproloL fumarate 10 MG TAB PO SCH (09:41)
[2022-02-25 09:42] VITALS: BP 137/84
[2022-02-25] MEDS: ENOXAPARIN 40MG/0.4ML SYRINGE (J1650 PER 10MG) SC SCH (09:42)
[2022-02-25] MEDS: HYDROCHLOROthiazide 6.25MG PER 1/4TAB PO SCH (09:42)
[2022-02-25 10:00] VITALS: BP 137/83
[2022-02-25] MEDS ORDERED: BISO10TA13 PO (10:37)
[2022-02-25] MEDS ORDERED: AMOX875T2 PO (10:37)
[2022-02-25] MEDS ORDERED: METR-265 PO (10:37)
[2022-02-25] MEDS ORDERED: AZIT-12 PO (10:37)
[2022-02-25] MEDS ORDERED: OXYC1TAB23 PO (11:09)
== END 2022-02-25 12:57 | disposition home or self-care (01) | DRG 605 ==
LOC: M ED 14:09 → M ED INP 18:11 → ENRESERV 19:28 → CANRESERV 19:28 → M MSPAV 20:37
PROVIDERS: ADMIT Internal Medicine; ATTEND Internal Medicine
DX: S61.451A Open bite of right hand, initial encounter (principal); K86.1 Other chronic pancreatitis; L03.113 Cellulitis of right upper limb; I10 Essential (primary) hypertension; F41.9 Anxiety disorder, unspecified; K21.9 Gastro-esophageal reflux disease without esophagitis; G47.00 Insomnia, unspecified; L29.8 Other pruritus; Z88.2 Allergy status to sulfonamides; Z88.8 Allergy status to other drugs, medicaments and biological substances; Z79.899 Other long term (current) drug therapy; M06.9 Rheumatoid arthritis, unspecified; W55.01XA Bitten by cat, initial encounter; Y92.009 Unspecified place in unspecified non-institutional (private) residence as the place of occurrence of the external cause

== ENCOUNTER → 2022-03-02 | Outpatient (CLI) | payer OTHER ==
[~2022-03-02] MED LIST changes: +ACTE162I SQ; +AMOX875T2 PO; +AZIT-12 PO; +BISO10TA13 PO; +BISO1TAB19 PO; +METR-265 PO; +OXYC1TAB23 PO; +XIID5DRO OU
== END ==
LOC: M WHC 08:01
PROVIDERS: ATTEND Obstetrics & Gynecology
DX: Z12.31 Encounter for screening mammogram for malignant neoplasm of breast (principal); R14.0 Abdominal distension (gaseous); N63.13 Unspecified lump in the right breast, lower outer quadrant

== ENCOUNTER → 2022-03-09 | Outpatient (CLI) | payer OTHER ==
[~2022-03-09] MED LIST changes: +**SFHN** LIDOCAINE 1% MDV 20ML VIAL ONE; +**SFHN** SODIUM BICARBONATE 8.4% 10MEQ 10ML VIAL ONE
[2022-03-09 13:31] VITALS: BP 112/76
== END ==
LOC: M WHCPRO 12:37
PROVIDERS: ATTEND Obstetrics & Gynecology
DX: R92.8 Other abnormal and inconclusive findings on diagnostic imaging of breast (principal); N63.13 Unspecified lump in the right breast, lower outer quadrant
CPT/HCPCS: 19083; 77065; 88305; G0279

== ENCOUNTER → 2022-03-28 | Outpatient (CLI) | payer OTHER ==
[~2022-03-28] MED LIST changes: -**SFHN** LIDOCAINE 1% MDV 20ML VIAL ONE; -**SFHN** SODIUM BICARBONATE 8.4% 10MEQ 10ML VIAL ONE
== END ==
LOC: M WHC 13:19
PROVIDERS: ATTEND Specialist
DX: N61.1 Abscess of the breast and nipple (principal)

== ENCOUNTER → 2022-04-12 | Outpatient (REF) | payer OTHER | LOC: M SFHCWAGY 17:28 | PROVIDERS: ATTEND Surgery | DX: N61.1 Abscess of the breast and nipple (principal) ==

== ENCOUNTER → 2024-09-17 | Outpatient (REF) | payer OTHER ==
[~2024-09-17] MED LIST changes: +BISO1TAB19; +DOXY-441; -DOXY-443; +INFL10VL IV; -LEFL1TAB4 PO; +LEFL20TA15; +LEFL20TA15 PO; +LIFI1DRO4 OU; +PREM.6256; +ROSU5TAB49; -XIID5DRO OU
[2024-09-19 14:22] LABS: HPV APTIMA Not Detected (Not Detected)
== END ==
LOC: M SFHCWAGY 12:52
PROVIDERS: ATTEND Obstetrics & Gynecology
DX: Z12.4 Encounter for screening for malignant neoplasm of cervix (principal)
CPT/HCPCS: 87624; G0123